=== PATIENT | male | born 1995 | race Caucasian/White ===

== ENCOUNTER 2020-06-23 01:59 | Outpatient (CLI) | payer BC, SELFPAY ==
[2020-06-23 11:35] LABS: Anion Gap 7.1 mmol/L (3-11); BUN 16 mg/dL (7-18); CO2 30.9 mmol/L (21.0-32.0); CREATININE 1.3 mg/dL (0.70-1.30); Calcium 9.1 mg/dL (8.5-10.1); Calculated LDL 84 mg/dL (<100); Chloride 104 mmol/L (98-107); Cholesterol 154 mg/dL (<200); Glucose 83 mg/dL (74-106); HDL Cholesterol 55 mg/dL (40-60); Potassium 4.4 mmol/L (3.5-5.1); Sodium 142 mmol/L (136-145); Triglyceride 79 mg/dL (<150); Vitamin B12 675 pg/mL (193-986)
[2020-06-26 10:52] LABS: Lyme Ab w Rflx to Lyme Confirm Negative (Negative)
[2020-06-26 11:01] LABS: HIV-1/2 Ag & Ab Screen Negative (Negative)
[2020-06-26 11:06] LABS: Hepatitis C Ab w Rflx HCV PCR Negative (Negative)
== END 2020-06-23 02:00 | disposition home or self-care (01) ==
LOC: LBO 01:59
PROVIDERS: PCP Nurse Practitioner Family; Visit Provider Nurse Practitioner Family
DX: R43.1 Parosmia (principal); Z13.1 Encounter for screening for diabetes mellitus; Z13.220 Encounter for screening for lipoid disorders; Z11.4 Encounter for screening for human immunodeficiency virus [HIV]; Z11.51 Encounter for screening for human papillomavirus (HPV)
CPT/HCPCS: 36415; 80048; 80061; 86803; 87389; 82607; 86618

== ENCOUNTER 2020-07-20 10:38 | Outpatient (CLI) | payer BC, SELFPAY ==
--- NOTE | 2020-07-20 10:30 | RT.EKG_ITS ---
APPROVED REPORT Exam: Resting ECG Reason for Exam: Elevated BP Patient Location: O HR:55 bpm ECG Measurements Heart Rate 55 AXIS MT 190 P 69 QRSd 84 QRS 71 QT 418 T 29 QTc 382 Conclusion Sinus bradycardia...rate< 60 Atrial premature complexes...SV complexes w/ short R-R intvls
== END 2020-07-20 10:39 | disposition home or self-care (01) ==
PROVIDERS: PCP Nurse Practitioner Family; Visit Provider Nurse Practitioner Family
DX: R03.0 Elevated blood-pressure reading, without diagnosis of hypertension (principal)
CPT/HCPCS: 93010

== ENCOUNTER 2022-05-10 18:43 | Outpatient (REF) | payer OTHER, SELFPAY ==
[2022-05-13 12:56] LABS: Chlamydia Result Negative (Negative); GC Result Negative (Negative)
== END 2022-05-10 18:44 | disposition home or self-care (01) ==
LOC: LBN 18:43
PROVIDERS: PCP Nurse Practitioner Family; Visit Provider Nurse Practitioner Family
DX: Z86.19 Personal history of other infectious and parasitic diseases (principal); Z11.3 Encounter for screening for infections with a predominantly sexual mode of transmission
CPT/HCPCS: 87491; 87591

== ENCOUNTER 2022-11-07 13:41 | Outpatient (CLI) | payer OTHER, SELFPAY | END 2022-11-07 13:42 | disposition home or self-care (01) | LOC: DI.KIM 13:43 | PROVIDERS: PCP Nurse Practitioner Family; Visit Provider Nurse Practitioner Family | CPT/HCPCS: 93010 ==

== ENCOUNTER 2022-11-14 15:34 | Outpatient (CLI) | payer OTHER, SELFPAY | END 2022-11-14 15:35 | disposition home or self-care (01) | PROVIDERS: PCP Nurse Practitioner Family; Visit Provider Nurse Practitioner Family | DX: Z79.899 Other long term (current) drug therapy (principal) | CPT/HCPCS: 93010 ==

== ENCOUNTER 2023-06-21 18:05 | Emergency (ER) | payer OTHER, SELFPAY ==
[2023-06-21] VITALS (99 sets, daily range): BP systolic 145–168; BP diastolic 66–104; PULSE 64–98; RESP 12–32; TEMP 35.9; O2SAT 94–100
--- NOTE | 2023-06-21 18:15 | DI.RAD_ITS ---
Exam(s) XR ELBOW LT COMPLETE EXAM: XR ELBOW LT COMPLETE CLINICAL HISTORY: Pain and deformity to LT elbow s/p fall. TECHNIQUE: 2D digital imaging was performed. COMPARISON: No exams were available for comparison FINDINGS: Two views: Dislocated elbow joint. Radial head and neck and olecranon fossa are dislocated posterior to the humeral condyles. No obvious fracture IMPRESSION: Elbow dislocation DATA REPOSITORY: RADIATION DOSE DELIVERED:
--- NOTE | 2023-06-21 18:42 | ED.GENADUL_ITS ---
Discharge Plan Disposition Patient Disposition: Home Condition: Stable Discharge Details Clinical Impression: Dislocation of left elbow Primary Care Provider: Teena Domínguez ED Provider: Bethel Sanchez Home Meds and New Rx's Prescriptions: Continued dextroamphetamine-amphetamine [Adderall XR] 5 mg capsule,extended release 24hr 5 mg PO QAM MDD 5 mg Qty: 8 0RF Rx Instructions: Treatment agreement is for 8 pills for 28 days dextroamphetamine-amphetamine [Adderall XR] 5 mg capsule,extended release 24hr 5 mg PO QAM MDD 5 mg Qty: 8 0RF Rx Instructions: Treatment agreement is for 8 pills for 28 days dextroamphetamine-amphetamine [Adderall XR] 5 mg capsule,extended release 24hr 5 mg PO QAM MDD 5 mg Qty: 8 0RF Rx Instructions: Treatment agreement is for 8 pills for 28 days Discharge Instructions Instructions: Elbow Dislocation (ED), Closed Reduction (ED) Additional Instructions: You were seen in the emergency department for your left elbow dislocation. We performed a conscious sedation with propofol and relocated your elbow using significant force. Please try to remain in the Roberto bandage and shoulder immobilizer for the next 24 to 72 hours based on your pain and tolerance. Do not engage in highly mobile activities or sports for a few days. Take Tylenol and ibuprofen as needed and ice the elbow frequently. It will be easiest to sleep in a recliner chair. Follow-up with our orthopedics providers for any persistent pain due to the risk of ligamentous injury from this dislocation. Please use therapeutic dosing of Tylenol (acetamenophen) & Advil (ibuprofen) in an alternating fashion as follows: Take 1000mg of Tylenol every 6 hours without missing doses- that is 4 times per day. [place] in between the Tylenol dosings, take 400-600mg of Advil also on a 6 hour schedule, that is also 4 times per day. The daily maximum dosing of Tylenol is 4000mg, and the daily maximum dosing of Advil is 2400mg. This is safe to do for weeks. Please note that some common cold medications & prescription pain medications may contain acetamenophen and you need to read OTC drug labels and factor that in to maximum daily dosings. Please return for any severe increase in pain at this point forearm with swelling, tenderness to light touch, complete numbness of the hand, temperature changes of the hand separate from ice use. Referrals: [facility] [Provider Group] Teena Domínguez NP [Primary Care Provider] - Discharge Data Discharge Date/Time-TO BE ENTERED AT DEPARTURE: 06/21/23 21:32 HPI General Date/Time Provider Initiated Documentation: 06/21/23 18:31 . HPI Narrative: 27 year-old male presents to ED today by POV/ambulating with a friend with a chief complaint of fall to L side with elbow deformity, R-hand dominant, with onset just prior to arrival. Quality described as worst pain he's ever been in, no radiation to complete numbness of hand, inability to move his fingers, shoulder pain, headstrike, LOC, thoracic pain. Severity is described as 10/10. Palliating factors include guarding it, immobilizing his elbow. Provoking factors include fall. Patient not anticoagulated. Related Data Home Medications Medication Instructions Recorded Confirmed dextroamphetamine-amphetamine ER 5 5 mg PO QAM #8 tab-caps 04/10/22 06/21/23 mg 24hr capsule,extend release (Adderall XR) dextroamphetamine-amphetamine ER 5 5 mg PO QAM #8 tab-caps 04/10/22 06/21/23 mg 24hr capsule,extend release (Adderall XR) dextroamphetamine-amphetamine ER 5 5 mg PO QAM #8 tab-caps 04/10/22 06/21/23 mg 24hr capsule,extend release (Adderall XR) Previous Rx's Medication Instructions Recorded dextroamphetamine-amphetamine ER 5 5 mg PO QAM #8 tab-caps 04/10/22 mg 24hr capsule,extend release (Adderall XR) dextroamphetamine-amphetamine ER 5 5 mg PO QAM #8 tab-caps 04/10/22 mg 24hr capsule,extend release (Adderall XR) dextroamphetamine-amphetamine ER 5 5 mg PO QAM #8 tab-caps 04/10/22 mg 24hr capsule,extend release (Adderall XR) Allergies Allergy/AdvReac Type Severity Reaction Status Date / Time No Known Allergies Allergy Verified 06/21/23 18:51 General Stated Complaint: Orthopedic HUMA: 3 Review of Systems All systems reviewed & are unremarkable except as noted in HPI and below Exam Narrative Exam Narrative: GENERAL APPEARANCE: Well-nourished, non-toxic, awake and alert, atraumatic, no acute distress. SKIN: Warm, pink, dry, intact, without rashes/lesions/ulcerations. HEAD: Normocephalic, atraumatic, normal hair distribution for gender/age. EYES: Normal conjunctiva, no exudates on lids/lashes. ENT: Nares patent, no circumoral cyanosis, no facial swelling NECK: Supple, trachea midline, painless cervical ROM. LUNGS/CHEST: Lungs CTA bilaterally- no rhonchi/rales/wheezes, non-labored respirations, normal A/P diameter, symmetrical expansion, no chest wall deformity HEART (CV/PV): Regular rate and rhythm without murmur, no peripheral edema, no JVD. ABDOMEN: Soft, non-distended, no guarding, no tenderness. MSK: Normal ROM, no swelling/deformity to bilateral UEs or LEs, moving all extremities without weakness, no cyanosis, spine midline without tenderness, normal curvature. 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 Motor: No focal weakness - strength 5/5 in bilateral UEs and LEs, proximal and distal, symmetric. Sensory: sensation intact to light touch globally. Gait normal: patient ambulated without ataxia into ED room. PSYCH: euthymic, cooperative, pleasant, appropriate speech Course Vital Signs Vital signs: Vital Signs Temperature 35.9 C L 06/21/23 18:06 Pulse 64 06/21/23 18:06 Respiratory Rate 18 06/21/23 18:06 Pulse Oximetry 98 06/21/23 18:06 Temperature 35.9 C L 06/21/23 18:06 Temperature Source Tympanic 06/21/23 18:06 Pulse 64 06/21/23 18:06 Respiratory Rate 18 06/21/23 18:06 Blood Pressure Position Sitting 06/21/23 18:06 Pulse Oximetry 98 06/21/23 18:06 Oxygen Delivery Method Room Air 06/21/23 18:06 Oxygen Flow Rate 0 06/21/23 18:06 Pain Level 9 06/21/23 18:06 Procedures Orthopedic Joint Reduction Joint #1: Time Out Performed: Yes Side: left Joint Reduction Location: elbow Analgesia: procedural sedation (76mg propofol with RT present on ETCO2, no acute events or complications) Technique used: traction/counter-traction, direct manipulation and other (Both myself and EM attending Dr. Paulino performed manual inline traction as well as direct pressure on the displaced olecranon to reduce into normal anatomical position with success.) Post-reduction neuro exam: intact Post-reduction vascular: intact Post Reduction X-Ray Obtained: Yes Post Reduction X-Ray Results: reduced Splint Applied: Yes Patient Tolerated Procedure: well Medical Decision Making This dictation utilizes [id number] dictation software and may contain unedited grammatical errors. 27 y/o M presents to ED today with a chief complaint of left elbow swelling and deformity after falling on his left side, likely dislocation, endorses significant pain, denies complete numbness, no shoulder pain or tenderness, no head strike or LOC. Patients' medical history: Negative, otherwise healthy. Family and social history: Had 1 beer earlier today, otherwise no acute substance ingestion. Pertinent exam findings / vital signs include left elbow has swelling and deformity consistent with dislocation, neurovascular intact distal, no proximal trauma, no head strike or LOC, mentating normally, benign cardiopulmonary status. Differential / pathologies of concern include fracture, dislocation. Diagnostic studies of: -X-ray left elbow, shows dislocation of radius and ulna without fracture. -Postreduction x-ray shows successful reduction without evidence for fracture Interventions of: -Elbow reduction with procedural sedation with 76 mg of propofol without acute complications or events, patient tolerated procedure well, placed in shoulder immobilizer. ED Course/Assessment/Plan: 27-year-old male presented after a fall to his left side where he felt significant popping and has deformity with swelling, he is healthy and muscular and required significant effort with dislocation by myself and EM attending Dr. Chepe Gaffney. He tolerated the procedure well and was neurovascularly intact pre and post joint reduction without evidence for fracture on pre and postreduction plain films. I counseled him on therapeutic dosing of Tylenol and ibuprofen as well as RICE therapy, placed in a shoulder immobilizer and recommend he follow- up with orthopedics. Findings not consistent with neurovascular compromise, fracture. Disposition of dislocation of left elbow. Patient verbalized understanding of the plan and return to ED criteria and engaged in shared decision making. Medical Records Medical records reviewed: Yes I reviewed the patient's medical records. Imaging Data Radiologic Study: Attestation: I personally reviewed and interpreted this imaging study as follows: Imaging: X-Ray Radiologist's impression: EXAM: XR ELBOW LT COMPLETE CLINICAL HISTORY: Pain and deformity to LT elbow s/p fall. TECHNIQUE: 2D digital imaging was performed. COMPARISON: No exams were available for comparison FINDINGS: Two views: Dislocated elbow joint. Radial head and neck and olecranon fossa are dislocated posterior to the humeral condyles. No obvious fracture IMPRESSION: Elbow dislocation Radiologic Study #2: Attestation: I personally reviewed and interpreted this imaging study as follows: Imaging: X-Ray Radiologist's impression: Exam: XR Left Elbow Exam date and time: 06/21/2023 7:55 PM Age: 27 years old Clinical indication: Mass or lump; Elbow and other: Left deformity; Patient HX: L elbow disloc, reduction attempted TECHNIQUE: Imaging protocol: Radiologic exam of the left elbow. Views: 3 or more views. COMPARISON: CR XR ELBOW LT COMPLETE 06/21/2023 6:24 PM FINDINGS: Bones/joints: The elbow has been successfully reduced, and is appropriately located. No joint space narrowing is observed. There are no fractures observed. A joint effusion is present, with abnormal anterior and posterior fat pads. Soft tissues: Soft tissue swelling is noted around the elbow. IMPRESSION: Successful reduction of elbow dislocation. Dictated and Authenticated by: Deonte Yates MD. Ordering:NERIS Hugo MD Lab Data Lab results reviewed: Yes I reviewed the patient's lab results. Quality:SDOH Health Related Social Needs: No Data to Display PFSH All Active Problems (Updated 06/21/23 @ 21:00 by LUL Sykes) Dislocation of left elbow (Acute) OCD (obsessive compulsive disorder) (Acute) Attention deficit hyperactivity disorder (Chronic) Comedonal acne (Chronic 08/03/20) Dr Vidal Hyperosmia (Acute) Family History Grandfather Substance abuse Grandmother Substance abuse Social History Smoking/Tobacco Use Status: Never Smoking risk assessment performed?: Yes Alcohol Intake: current Alcohol Intake frequency: a few times a month Drug use: Never Substance use type: does not use Counseling given: No Adopted: No Caregiver/Support person: No Foster care: No Household members: family Housing: apartment Communication Needs: None Education Level: college Do you need help understanding health information?: Rarely 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 Pets and animals: No Sexually active: Yes Do you think of yourself as: bisexual Current gender identity: male What is your relationship status?: refused to answer How often do you talk on the phone with friends or family?: three or more times per week How often do you get together with friends or relatives?: twice per week Do you belong to any clubs or organized social groups?: no Panel score (0-1 are the most socially isolated patients): 1 What type of physical activity do you participate in: running Duration: 30-45 minutes/day Frequency: daily Aneta/Orthodoxy: None Special aneta needs: No Seatbelt use: sometimes Helmet use: Yes
[2023-06-21] MEDS: Ketorolac 60 MG/2 ML VIAL IM (18:43)
[2023-06-21] MEDS: Acetaminophen 500 MG TAB 1000 MG PO (18:43)
[2023-06-21] MEDS: LORazepam 2 MG/ML VIAL 1 MG IM (18:43)
--- NOTE | 2023-06-21 18:54 | DI.VRAD_ITS ---
PROCEDURE INFORMATION: Exam: XR Left Elbow Exam date and time: 06/21/2023 6:24 PM Age: 27 years old Clinical indication: Other: Deformity TECHNIQUE: Imaging protocol: Radiologic exam of the left elbow. Views: 3 or more views. COMPARISON: No relevant prior studies available. FINDINGS: Bones/joints: Complex dislocation of the elbow. No obvious acute fracture on the limited views. Soft tissues: Distortion of normal elbow anatomy. IMPRESSION: Dislocated elbow. Dictated and Authenticated by: Sarah Perez MD. Ordering:NERIS Hugo MD
[2023-06-21] MEDS: Propofol 200 MG/20 ML VIAL 76 MG IVP (20:07)
--- NOTE | 2023-06-21 20:09 | DI.RAD_ITS ---
Exam(s) XR ELBOW LT COMP POST REDUC EXAM: XR ELBOW LT COMP POST REDUC CLINICAL HISTORY: L elbow disloc, reduction attempted. TECHNIQUE: 2D digital imaging was performed. COMPARISON: CR,XR XR ELBOW LT COMPLETE from 06/21/2023 FINDINGS: Two views-post reduction There has been successful realignment of the components of the elbow joint. No obvious fractures. N o loose bodies evident. No osseous lesions. IMPRESSION: Successful reduction-realignment of the dislocated elbow joint. No fractures evident. DATA REPOSITORY: RADIATION DOSE DELIVERED:
--- NOTE | 2023-06-21 20:24 | SUR.INTRAOP ---
conscious sedation 06/21/23, Time out w/ JRB and SD w/ pt at bedside @ 1945. Procedure and monitoring completed at 2019. Pt tolerated sedtion well, never sleeping or LOC, mildly drowsy, 0/10 pain for procedure, VS stable. See flow sheet. Pt Remains in 0/10 pain.
--- NOTE | 2023-06-21 20:47 | DI.VRAD_ITS ---
PROCEDURE INFORMATION: Exam: XR Left Elbow Exam date and time: 06/21/2023 7:55 PM Age: 27 years old Clinical indication: Mass or lump; Elbow and other: Left deformity; Patient HX: L elbow disloc, reduction attempted TECHNIQUE: Imaging protocol: Radiologic exam of the left elbow. Views: 3 or more views. COMPARISON: CR XR ELBOW LT COMPLETE 06/21/2023 6:24 PM FINDINGS: Bones/joints: The elbow has been successfully reduced, and is appropriately located. No joint space narrowing is observed. There are no fractures observed. A joint effusion is present, with abnormal anterior and posterior fat pads. Soft tissues: Soft tissue swelling is noted around the elbow. IMPRESSION: Successful reduction of elbow dislocation. Dictated and Authenticated by: Deonte Yates MD. Ordering:NERIS Hugo MD
== END 2023-06-21 21:32 | disposition home or self-care (01) ==
LOC: ER 21:33
PROVIDERS: Emergency Provider Physician Assistant; PCP Nurse Practitioner Family
DX: S53.024A Posterior dislocation of right radial head, initial encounter (principal); W18.39XA Other fall on same level, initial encounter; Y93.02 Activity, running
CPT/HCPCS: 24600; 73080; 96374; 99152; 99153; 99285; J1885; J2060; J2704

== ENCOUNTER 2023-07-03 15:32 | Outpatient (CLI) | payer OTHER, SELFPAY ==
--- NOTE | 2023-07-03 11:12 | DI.RAD_ITS ---
Exam(s) XR ELBOW LT COMPLETE EXAM: XR ELBOW LT COMPLETE CLINICAL HISTORY: F/U DISLOCATION. TECHNIQUE: 2D digital imaging was performed. Three views. COMPARISON: CR,XR XR ELBOW LT COMP POST REDUC from 06/21/2023 FINDINGS: BONES: No acute fracture is present. No bony destructive lesion is seen. JOINTS: The elbow is normally aligned. No joint effusion is seen. SOFT TISSUE: Prominent swelling. No foreign body or abnormal gas collection. IMPRESSION: Marked soft tissue swelling. DATA REPOSITORY: RADIATION DOSE DELIVERED:
== END 2023-07-03 15:33 | disposition home or self-care (01) ==
LOC: DIORS 15:33
PROVIDERS: PCP Nurse Practitioner Family; Visit Provider Physician Assistant
DX: S53.024D Posterior dislocation of right radial head, subsequent encounter (principal); X58.XXXD Exposure to other specified factors, subsequent encounter
CPT/HCPCS: 73080

== ENCOUNTER 2024-08-02 01:44 | Outpatient (CLI) | payer OTHER, SELFPAY ==
--- NOTE | 2024-08-02 08:15 | DI.RAD_ITS ---
Exam(s) XR ELBOW LT COMPLETE EXAM: XR ELBOW LT COMPLETE CLINICAL HISTORY: Check for new osseous growth, Z87.828 PERS HX OF HEALED PHY INJU AND TRAUMA. TECHNIQUE: 2D digital imaging was performed. COMPARISON: CR,XR XR ELBOW LT COMP POST REDUC from 06/21/2023 CR,XR XR ELBOW LT COMPLETE from 06/21/2023 CR XR ELBOW LT COMPLETE from 07/03/2023 FINDINGS: This patient had dislocated elbow on 06/21/2023. There is no obvious elbow joint effusion. There is also no swelling of the olecranon bursa. However , there are now calcific densities which were not previously present. First leak, there is a E 18 millimeter by mm calcific density in the soft tissues immediately adjacen t to the lateral epicondyle of the distal humerus. There is also a small corticated density lateral to the head of the radius, also not previously present. On the opposite-medial aspect of the elbow there is now a calcific density measuring 9 by 6 mm just d istal and probably dorsal to medial epicondyle. IMPRESSION: Compared to images of May 2023 (patient had dislocated elbow at that time) there are now multiple a bnormal calcifications in the elbow joint as described above. DATA REPOSITORY: RADIATION DOSE DELIVERED:
== END 2024-08-02 02:04 ==
LOC: DI 01:44
PROVIDERS: PCP Family Medicine; Visit Provider Family Medicine
DX: Z87.828 Personal history of other (healed) physical injury and trauma (principal); Z09 Encounter for follow-up examination after completed treatment for conditions other than malignant neoplasm
CPT/HCPCS: 73080

== ENCOUNTER 2024-09-06 20:16 | Outpatient (REF) | payer OTHER, SELFPAY ==
[2024-09-08 12:26] LABS: Chlamydia Result Negative (Negative); GC Result Negative (Negative)
== END 2024-09-06 20:17 | disposition home or self-care (01) ==
LOC: LBN 20:16
PROVIDERS: PCP Family Medicine; Visit Provider Nurse Practitioner Family
DX: Z11.3 Encounter for screening for infections with a predominantly sexual mode of transmission (principal)
CPT/HCPCS: 87491; 87591

== ENCOUNTER 2024-10-05 16:40 | Outpatient (REF) | payer OTHER, SELFPAY ==
[2024-10-07 12:48] LABS: Chlamydia Result Negative (Negative); GC Result Negative (Negative)
== END 2024-10-05 16:41 | disposition home or self-care (01) ==
LOC: LBN 16:40
PROVIDERS: PCP Family Medicine; Visit Provider Family Medicine
DX: Z11.3 Encounter for screening for infections with a predominantly sexual mode of transmission (principal)
CPT/HCPCS: 87491; 87591